=== PATIENT | male | born 1950 | race Caucasian/White ===

== ENCOUNTER 2016-06-26 08:01 | Day surgery (SDC) | payer OTHER ==
[2016-06-26] MEDS ORDERED: TETRACAINE 0.5% OPHTH 1 DOSE AFFEYE ONE ×2 (08:20→09:16)
[2016-06-26] MEDS ORDERED: AK-DILATE 2.5% OPHTH 1 DOSE AFFEYE ONE (08:21)
[2016-06-26] MEDS ORDERED: MYDRIACIL OPHTH 1 DOSE AFFEYE ONE (08:21)
[2016-06-26 11:22] VITALS: BP 188/90
== END 2016-06-26 09:35 | disposition home or self-care (01) ==
LOC: SURG1 08:01
PROVIDERS: ATTEND Ophthalmology
PROC: 085F3ZZ Destruction of Left Retina, Percutaneous Approach (ICD-10-PCS; principal; 2016-06-26 09:30)
DX: E11.3312 Type 2 diabetes mellitus with moderate nonproliferative diabetic retinopathy with macular edema, left eye (principal)

== ENCOUNTER 2016-07-24 07:22 | Day surgery (SDC) | payer OTHER ==
[2016-07-24] MEDS ORDERED: MYDRIACIL OPHTH 1 DOSE AFFEYE ONE ×3 (07:31→07:38)
[2016-07-24] MEDS ORDERED: AK-DILATE 2.5% OPHTH 1 DOSE OP ONE ×3 (07:31→07:38)
[2016-07-24] MEDS ORDERED: ALCAINE or OPHTHETIC 1 DOSE AFFEYE ONE (07:31)
[2016-07-24] MEDS ORDERED: TETRACAINE 0.5% OPHTH 1 DOSE AFFEYE ONE (08:14)
[2016-07-24 11:06] VITALS: BP 176/84
== END 2016-07-24 08:33 | disposition home or self-care (01) ==
LOC: SURG1 07:22
PROVIDERS: ATTEND Ophthalmology
PROC: 085E3ZZ Destruction of Right Retina, Percutaneous Approach (ICD-10-PCS; principal; 2016-07-24 09:00)
DX: E11.3311 Type 2 diabetes mellitus with moderate nonproliferative diabetic retinopathy with macular edema, right eye (principal)